=== PATIENT | female | born 1960 | race African-American/Black ===

== ENCOUNTER 2021-07-09 14:20 | Emergency (ER) | payer SELFPAY ==
[2021-07-10 13:40] LABS: SARS-CoV-2 PCR by NAA DETECTED (NotDetected)
== END 2021-07-09 15:45 | disposition home or self-care (01) ==
LOC: ERS 14:20
DX: U07.1 COVID-19 (principal); E11.9 Type 2 diabetes mellitus without complications; Z79.84 Long term (current) use of oral hypoglycemic drugs; Z79.82 Long term (current) use of aspirin; Z79.899 Other long term (current) drug therapy
CPT/HCPCS: 99283; U0003; U0005